=== PATIENT | female | born 1985 | race Caucasian/White ===

== ENCOUNTER 2021-12-24 17:38 | Inpatient (IN) ==
[2021-12-24] MEDS ORDERED: LACTATED RINGER'S 1,000 ML IV PRN (18:46)
[2021-12-24] MEDS ORDERED: OXYTOCIN 30 UNITS/500 ML BAG IV PRN ×2 (18:46→23:58)
--- NOTE | 2021-12-24 18:51 | Labor Progress Brief Note ---
Date of Service December 24, 2021 Assessment & Plan (1) : Plan: Pt seen in office and sent to L&D for admission FHr; CAT1 Ctx 1-4mins VE 4-5/75/-1 with bulging membranes offered pt labor augmentation with AROM pt agreeable to AROM Results & Data ([facility]) Vital Signs (Past 12 Hours) Vital Signs Temp Pulse Resp BP 12/24/21 17:57 36.5 C 18 12/24/21 17:52 80 125/87
[2021-12-24 19:16] LABS: Hematocrit (blood only) 38.4 % (37-47); Hemoglobin 12.9 g/dL (12.0-16.0); Mean Corpuscular Hemoglobin 30.9 pg (25-34); Mean Corpuscular Hgb Conc 33.6 g/dL (32-36); Mean Corpuscular Volume 91.9 fL (80-100); Platelet Count 178 K/uL (130-400); RDW Coefficient of Variation 13.4 % (11.5-14.5); RDW Standard Deviation 44.3 fL (36.4-46.3); Red Blood Count 4.18 M/uL (4.2-5.4); White Blood Count 8.75 K/uL (4.8-10.8)
[2021-12-24] MEDS ORDERED: BUPIVACAINE 0.25% 30 ML VIAL ONE (19:30)
[2021-12-24] MEDS ORDERED: ePHEDrine sulfate 50 MG/ML AMP ONE (19:30)
[2021-12-24] MEDS ORDERED: SODIUM CHLORIDE 0.9% INJ 10 ML VIAL ONE (19:30)
[2021-12-24] MEDS ORDERED: fentaNYL citrate 100 MCG/2 ML VIAL ONE (19:30)
[2021-12-24] MEDS ORDERED: fentaNYL 2MCG/ML ROPIVACAINE 1.25MG/ML 100 ML BAG EPI ONE (19:31)
[2021-12-24] MEDS ORDERED: ONDANSETRON INJ 2 MG/ML 2 ML VIAL IV PRN (20:16)
[2021-12-24] MEDS ORDERED: ePHEDrine sulfate 50 MG/ML AMP IV PRN (20:16)
[2021-12-24] MEDS ORDERED: fentaNYL 2MCG/ML ROPIVACAINE 1.25MG/ML 100 ML BAG EPI PRN (20:16)
[2021-12-24] MEDS ORDERED: NALBUPHINE HCL INJ 10 MG/ML AMP IV PRN (20:16)
[2021-12-24] MEDS ORDERED: diphenhydrAMINE 50 MG/ML VIAL IV PRN (20:16)
[2021-12-24] MEDS ORDERED: NALOXONE HCL 1 MG in SODIUM CHLORIDE 0.9% 1000ML 1,000 ML IV PRN (20:16)
[2021-12-24] MEDS ORDERED: NALOXONE HCL 0.4 MG/1 ML VIAL/CARP IV PRN (20:16)
--- NOTE | 2021-12-24 20:20 | Anesthesiology Consultation ---
Date of Service December 24, 2021 Assessment & Plan Chart Review Chart Review: Patient NOT seen in Pre Admission Testing and Acceptable Risk for Labor Epidural Consults Requested none ASA ASA2 Proposed Anesthesia Anesthesia Type: Labor Epidural and CSE Risk / Benefits Reviewed With: PT / POA / Parent / Guardian, Accepts Plan and Informed Consent Obtained History Height/Weight Height: 5 ft 10 in Weight: 77.111 kg Allergies Allergy/AdvReac Type Severity Reaction Status Date / Time amoxicillin AdvReac Mild NAUSEA Verified 12/30/13 05:00 clavulanic acid AdvReac Mild NAUSEA Verified 12/30/13 05:00 Medications Home Medications Medication Instructions Recorded Confirmed Last Taken Multivit/Min/Iron/Fol Ac/Pren 1 tab PO DAILY #0 12/12/11 12/24/21 12/24/21 ( Vitamin) Active Medications Generic Name Dose Route Start Last Admin Trade Name Freq PRN Reason Stop Dose Admin Lactated Ringer's 1,000 mls @ 125 mls/hr 12/24/21 18:46 12/24/21 19:35 Lr IV 12/26/21 18:45 999 mls/hr .Q8H PRN Administration L&D Protocol Protocol NPO Date Last Intake of Fluids: 12/24/21 Time Last Intake of Fluids: 19:30 Date Last Intake of Solids: 12/24/21 Time Last Intake of Solids: 17:00 Past Medical History Medical History Advanced maternal age (AMA) in No known health problems Normal esophagogastroduodenoscopy (EGD) (spontaneous vaginal delivery) x 2 Exercise / Class Metabolic Activity II 4-5 Yardwork/Stairs/Walk up hill Past Family History Family History Father Diabetes Hypertension Past Surgical History Surgical History [place] teeth extracted Past Anesthesia History No Hx of Anesthesia Complications and No Family Hx of Anesthesia Complications History of PONV No Hx of PONV and No Hx of Motion Sickness Social History Smoking Status: Never smoker Hx Alcohol Use: No Hx Substance Use: No Review of Systems no chest pain or sob Physical Exam Vital Signs Last Vital Signs Temp 36.5 C 12/24/21 19:09 Pulse 65 12/24/21 20:14 Resp 18 12/24/21 19:09 BP 131/87 12/24/21 19:08 Pulse Ox 99 12/24/21 20:14 ENMT Mouth: no TMJ abnormality Thyromental Distance: > or= 3.5 Finger Breadths Mallampati Class: II Neck normal visual inspection Respiratory normal respiratory effort Auscultation: lungs clear to auscultation bilaterally Cardiovascular Rate/Rhythm: regular rate and regular rhythm Musculoskeletal Spine: normal cervical ROM Neurologic moves all extremities Psychiatric Orientation: alert and oriented x 3 Testing Laboratory Results 12/24/21 19:06
--- NOTE | 2021-12-24 22:11 | Labor Progress Brief Note ---
Date of Service December 24, 2021 Assessment & Plan (1) : Plan: Pt doing well Epidural analgesia in Place FHR; CAT1 Ctx; 1-4mins SROM; Clear VE; 6/75/+1 anticipate VD Results & Data ([facility]) Vital Signs (Past 12 Hours) Vital Signs Temp Pulse Resp BP Pulse Ox 12/24/21 22:04 67 100 12/24/21 22:01 63 104/64 12/24/21 22:00 18 12/24/21 21:59 69 99 12/24/21 21:54 70 99 12/24/21 21:50 36.6 C 12/24/21 21:49 67 100 12/24/21 21:46 75 137/66 12/24/21 21:44 73 100 12/24/21 21:39 81 98 12/24/21 21:34 71 99 12/24/21 21:30 71 18 128/77 12/24/21 21:29 71 99 12/24/21 21:24 68 99 12/24/21 21:19 77 99 12/24/21 21:17 81 117/75 12/24/21 21:14 80 100 12/24/21 21:11 79 127/73 12/24/21 21:09 73 100 12/24/21 21:06 67 119/72 12/24/21 21:04 68 99 12/24/21 21:00 71 125/77 12/24/21 20:59 70 18 99 12/24/21 20:55 81 18 129/78 12/24/21 20:54 80 100 12/24/21 20:51 70 122/74 12/24/21 20:50 18 12/24/21 20:49 73 120/74 98 12/24/21 20:47 79 118/75 12/24/21 20:45 74 18 120/75 12/24/21 20:44 68 99 12/24/21 20:43 70 122/77 12/24/21 20:41 67 132/82 12/24/21 20:40 18 12/24/21 20:39 68 146/90 H 99 12/24/21 20:34 68 100 12/24/21 20:29 72 100 12/24/21 20:24 68 93 12/24/21 20:23 66 93 12/24/21 20:19 60 100 12/24/21 20:14 65 99 12/24/21 20:09 60 100 12/24/21 19:09 36.5 C 18 12/24/21 19:08 91 H 131/87 12/24/21 17:57 36.5 C 18 12/24/21 17:52 80 125/87
[2021-12-24] MEDS ORDERED: ERYTHROMYCIN OP OINT 1 GM PKT ONE (23:26)
[2021-12-24] MEDS ORDERED: miSOPROStoL 200 MCG TAB PR ONE (23:58)
[2021-12-24] MEDS ORDERED: METHYLERGONOVINE MALEATE 0.2 MG/ML AMP IM ONE (23:58)
[2021-12-24] MEDS ORDERED: DIPHTHERIA/TETANUS/PERTUSSIS 0.5 ML SYR/VIAL IM ONE (23:58)
[2021-12-24] MEDS ORDERED: BENZOCAINE 20% AER SPR 82.5 GM CAN EXT PRN (23:58)
[2021-12-24] MEDS ORDERED: HYDROCORTISONE ACETATE 25 MG SUPP PR PRN (23:58)
[2021-12-24] MEDS ORDERED: ACETAMINOPHEN 325 MG TAB PO PRN (23:58)
[2021-12-25] MEDS ORDERED: OXYTOCIN 20 UNITS in LACTATED RINGER'S 1,000 ML IV SCH (00:15)
[2021-12-25] MEDS ORDERED: METHYLERGONOVINE MALEATE 0.2 MG/ML AMP ONE (00:18)
[2021-12-25] MEDS ORDERED: miSOPROStoL 200 MCG TAB ONE (00:18)
[2021-12-25] MEDS: IBUPROFEN 600 MG TAB PO PRN ×3 (05:08→19:56)
--- NOTE | 2021-12-25 05:20 | Delivery Summary ---
DATE OF DELIVERY: 12/24/2021. DELIVERY NOTE: The patient delivered a live male in left occiput anterior presentation. There was no nuchal cord. The was delivered and placed on mother's abdomen. Cord was clamped and cut. It was noted that the patient had a true knot in the cord. Cord blood was obtained. Placenta was spontaneously delivered. Inspection of the placenta shows a normal looking placenta with 3-vessel cord. Inspection of the perineum showed a second-degree midline laceration, which was repaired with 2-0 and 3-0 Vicryl in layers. Rectal exam post repair showed good sphincter tone. No sutures were palpated in the rectum. Estimated blood loss was 450 mL. The baby and mother are doing well. The 's information is in the pediatric record. Baby and mother are stable in recovery. Job ID: [id number] [facility]
[2021-12-25 07:39] LABS: Hematocrit (blood only) 35.8 % (37-47); Hemoglobin 11.9 g/dL (12.0-16.0); Mean Corpuscular Hemoglobin 30.7 pg (25-34); Mean Corpuscular Hgb Conc 33.2 g/dL (32-36); Mean Corpuscular Volume 92.3 fL (80-100); Platelet Count 146 K/uL (130-400); RDW Coefficient of Variation 13.4 % (11.5-14.5); RDW Standard Deviation 44.7 fL (36.4-46.3); Red Blood Count 3.88 M/uL (4.2-5.4); White Blood Count 13.09 K/uL (4.8-10.8)
--- NOTE | 2021-12-25 08:46 | Obstetrical Progress Note ---
Date of Service December 25, 2021 Subjective Ambulation: ambulating normally Voiding: no voiding problems Passing Gas:: Yes Diet Tolerance:: regular diet Lochia:: Small Feeding Type:: breast feeding Current Pain Level(1-10): 0 doing well Review of Systems All systems reviewed & are unremarkable except as noted in HPI & below Physical Exam Constitutional WD/WN, vitals as above abdomen soft and non-tender fundus firm for d/c in AM Results & Data ([facility]) Vital Signs (Past 12 Hours) Vital Signs Temp Pulse Pulse Pulse Resp BP BP 12/25/21 07:55 36.8 C 55 L 16 12/25/21 04:45 36.5 C 64 20 12/25/21 02:10 36.8 C 68 20 138/88 12/25/21 01:55 66 18 133/77 12/25/21 01:40 68 137/76 12/25/21 01:25 67 20 129/91 12/25/21 01:10 66 128/82 12/25/21 00:55 65 18 123/80 12/25/21 00:40 65 20 123/80 12/25/21 00:25 68 18 127/77 12/25/21 00:10 68 18 127/77 12/25/21 00:00 68 18 127/77 12/24/21 23:55 80 18 120/79 12/24/21 23:54 80 120/79 12/24/21 23:45 82 123/75 12/24/21 23:29 103 H 118/75 12/24/21 23:19 93 H 12/24/21 23:14 73 12/24/21 23:09 77 12/24/21 23:04 73 12/24/21 23:00 64 110/80 12/24/21 22:59 63 12/24/21 22:54 60 12/24/21 22:49 60 12/24/21 22:45 80 108/80 12/24/21 22:44 64 12/24/21 22:39 64 12/24/21 22:34 68 12/24/21 22:31 70 18 141/99 H 12/24/21 22:29 68 12/24/21 22:24 61 12/24/21 22:19 72 12/24/21 22:15 62 125/71 12/24/21 22:14 60 05/18/22 22:09 64 12/24/21 22:04 67 12/24/21 22:01 63 104/64 12/24/21 22:00 18 12/24/21 21:59 69 05 21:54 70 12/24/21 21:50 36.6 C 12/24/21 21:49 67 12/24/21 21:46 75 137/66 12/24/21 21:44 73 12/24/21 21:39 81 12/24/21 21:34 71 12/24/21 21:30 71 18 128/77 12/24/21 21:29 71 12/24/21 21:24 68 12/24/21 21:19 77 12/24/21 21:17 81 117/75 12/24/21 21:14 80 12/24/21 21:11 79 127/73 12/24/21 21:09 73 12/24/21 21:06 67 119/72 12/24/21 21:04 68 12/24/21 21:00 71 125/77 12/24/21 20:59 70 18 12/24/21 20:55 81 18 129/78 12/24/21 20:54 80 12/24/21 20:51 70 122/74 12/24/21 20:50 18 12/24/21 20:49 73 120/74 12/24/21 20:47 79 118/75 12/24/21 20:45 74 18 120/75 12/24/21 20:44 68 BP Pulse Ox 12/25/21 07:55 129/89 100 12/25/21 04:45 128/83 98 12/25/21 02:10 98 12/25/21 01:55 12/25/21 01:40 12/25/21 01:25 12/25/21 01:10 12/25/21 00:55 12/25/21 00:40 12/25/21 00:25 12/25/21 00:10 12/25/21 00:00 12/24/21 23:55 12/24/21 23:54 12/24/21 23:45 12/24/21 23:29 12/24/21 23:19 100 12/24/21 23:14 100 12/24/21 23:09 99 12/24/21 23:04 100 12/24/21 23:00 12/24/21 22:59 100 12/24/21 22:54 99 12/24/21 22:49 100 12/24/21 22:45 12/24/21 22:44 100 12/24/21 22:39 100 12/24/21 22:34 100 12/24/21 22:31 12/24/21 22:29 100 12/24/21 22:24 100 12/24/21 22:19 100 12/24/21 22:15 12/24/21 22:14 100 12/24/21 22:09 100 12/24/21 22:04 100 12/24/21 22:01 12/24/21 22:00 12/24/21 21:59 99 12/24/21 21:54 99 12/24/21 21:50 12/24/21 21:49 100 12/24/21 21:46 12/24/21 21:44 100 12/24/21 21:39 98 12/24/21 21:34 99 12/24/21 21:30 12/24/21 21:29 99 12/24/21 21:24 99 12/24/21 21:19 99 12/24/21 21:17 12/24/21 21:14 100 12/24/21 21:11 12/24/21 21:09 100 12/24/21 21:06 12/24/21 21:04 99 12/24/21 21:00 12/24/21 20:59 99 12/24/21 20:55 12/24/21 20:54 100 12/24/21 20:51 12/24/21 20:50 12/24/21 20:49 98 12/24/21 20:47 12/24/21 20:45 12/24/21 20:44 99 Laboratory Results Laboratory Results - last 48 hr 12/24/21 12/24/21 12/25/21 18:40 19:06 06:57 WBC 8.75 13.09 H RBC 4.18 L 3.88 L Hgb 12.9 11.9 L Hct 38.4 35.8 L MCV 91.9 92.3 MCH 30.9 30.7 MCHC 33.6 33.2 RDW Std Deviation 44.3 44.7 RDW Coeff of Shiv 13.4 13.4 Plt Count 178 146 MPV 11.0 H 11.0 H SARS-CoV-2, RNA, NAAT NEGATIVE
[2021-12-25] MEDS: DOCUSATE SODIUM 100 MG CAP PO SCH ×2 (08:58→19:56)
[2021-12-25] MEDS: PRENATAL VITAMIN 1 TAB PO SCH (08:58)
--- NOTE | 2021-12-25 09:21 | Anesthesia Procedure Note ---
Date of Service December 25, 2021 Anesthesia Post Epidural Note Vital Signs Vital Signs: Temp Pulse Resp BP Pulse Ox 36.8 C 55 L 16 129/89 100 12/25/21 07:55 12/25/21 07:55 12/25/21 07:55 12/25/21 07:55 12/25/21 07:55 Pain Intensity Bilateral Abdomen: Pain Intensity: 2 Notes Mental Status: alert / awake / arousable Nausea / Vomiting: adequately controlled Pain: adequately controlled Airway Patency, RR, SpO2: stable & adequate BP & HR: stable & adequate Hydration State: stable & adequate Neuraxial Anesthesia: was administered and sensory block is resolving Anesthetic Complications: no major complications apparent and Pt Satisfied with anesthetic care Epidural: Removed without complications and With tip intact
[2021-12-25] MEDS ORDERED: MEASLES, MUMPS & RUBELLA VIRUS VIAL SQ ONE (15:09)
[2021-12-25] MEDS ORDERED: bisacodyL 5 MG TABEC PO SCH (20:00)
[2021-12-26 06:33] LABS: Hematocrit (blood only) 35.3 % (37-47); Hemoglobin 11.6 g/dL (12.0-16.0)
[2021-12-26] MEDS: PRENATAL VITAMIN 1 TAB PO SCH (08:09)
[2021-12-26] MEDS: IBUPROFEN 600 MG TAB PO PRN (08:09)
[2021-12-26] MEDS: DOCUSATE SODIUM 100 MG CAP PO SCH (08:10)
--- NOTE | 2021-12-26 08:32 | Obstetrical Progress Note ---
Date of Service December 26, 2021 Subjective Ambulation: ambulating normally Voiding: no voiding problems Passing Gas:: Yes Diet Tolerance:: regular diet Lochia:: Small Feeding Type:: breast feeding Current Pain Level(1-10): 0 doing well Physical Exam Constitutional WD/WN, vitals as above abdomen soft and non-tender fundus firm no edema neg Zoila's for d/c Results & Data [facility]) Vital Signs (Past 12 Hours) Vital Signs Temp Pulse Resp BP Pulse Ox 12/25/21 23:15 36.8 C 60 16 104/69 97 Laboratory Results Laboratory Results - last 72 hr 12/24/21 12/24/21 12/25/21 18:40 19:06 06:57 WBC 8.75 13.09 H RBC 4.18 L 3.88 L Hgb 12.9 11.9 L Hct 38.4 35.8 L MCV 91.9 92.3 MCH 30.9 30.7 MCHC 33.6 33.2 RDW Std Deviation 44.3 44.7 RDW Coeff of Shiv 13.4 13.4 Plt Count 178 146 MPV 11.0 H 11.0 H SARS-CoV-2, RNA, NAAT NEGATIVE 12/26/21 05:59 WBC RBC Hgb 11.6 L Hct 35.3 L MCV MCH MCHC RDW Std Deviation RDW Coeff of Shiv Plt Count MPV SARS-CoV-2, RNA, NAAT
[2021-12-27] MEDS ORDERED: bisacodyL 10 MG SUPP PR PRN
== END 2021-12-26 12:20 | disposition home or self-care (01) | DRG 807 ==
LOC: EDSTATUS 17:38 → OPB 17:38 → EDINP 17:40 → 4S1 17:40 → EDINP 18:46 → 4S1 23:28 → EDINP 12-25 02:21 → 4E2 12-25 02:21 → UNDODISIN 12-26 12:20